=== PATIENT | female | born 1970 | race Caucasian/White ===

== ENCOUNTER 2024-06-16 10:56 | Emergency (ER) | payer OTHER ==
[~2024-06-16] VITALS: Ht 165.1 cm; Wt 63.5 kg
[2024-06-16 11:05] VITALS: O2SAT 98
--- NOTE | 2024-06-16 12:09 | NUR ---
Patient discharged to home in stable condition. Written and verbal after care instructions given. Patient verbalizes understanding of instructions. Stressed follow up or return to ER for worsening s/s.
== END 2024-06-16 12:10 | disposition home or self-care (01) ==
LOC: ER 11:02
DX: S93.491A Sprain of other ligament of right ankle, initial encounter (principal); X58.XXXA Exposure to other specified factors, initial encounter; Y93.89 Activity, other specified; Y92.89 Other specified places as the place of occurrence of the external cause; Y99.8 Other external cause status
CPT/HCPCS: 73630; A4606; A4663